=== PATIENT | female | born 1980 | race Caucasian/White ===

== ENCOUNTER 2023-05-08 18:50 | Emergency (ER) | payer SELFPAY ==
[2023-05-08 19:00] VITALS: BP 150/104; PULSE 78; RESP 18; TEMP 36.7; O2SAT 97
--- NOTE | 2023-05-08 19:23 | ED.GENADULT ---
HPI - General Adult General Chief complaint: Urogenital-Female Stated complaint: possible UTI Time Seen by Provider: 05/08/23 19:22 History of Present Illness HPI narrative: Patient is a 43 year old female here via EMS for urinary symptoms. Patient notes that police and EMS were initially called given concern for possible domestic disturbance. She notes that the police initially wanted her to have a mental health evaluation however on EMS arrival she was alert, oriented, and denied an SI, HI. She told them she was worried she may have a UTI so she agreed to come into the ED to be seen. She notes urinary symptoms for the last 3 days including increased urinary frequency, dysuria. No blood. Her last period was a couple weeks ago, does not believe she could be . Denies any abdominal pain, flank pain, fever, chills. She does have history of depression right after her years ago, no longer struggles with depression. Related Data Home Medications Medication Instructions Recorded Confirmed No Home Medications 05/08/23 05/08/23 Allergies Allergy/AdvReac Type Severity Reaction Status Date / Time amoxicillin [From Augmentin] Allergy Vomiting Verified 05/08/23 19:17 clavulanic acid Allergy Vomiting Verified 05/08/23 19:17 [From Augmentin] Review of Systems Review of Systems: All systems reviewed & are unremarkable except as noted in HPI and below Exam Narrative: GENERAL: Well-appearing, well-nourished, and in no acute distress. HEAD: Normocephalic, atraumatic. EYES: PERRLA and EOMI. ENT: Nares clear. Mucous membranes moist. Poor dentition. NECK: Supple. CHEST: Clear to auscultation. No respiratory distress. HEART: Regular rate and rhythm. Normal peripheral pulses. ABDOMEN: Soft, nontender, nondistended. EXTREMITIES: Normal range of motion. No edema. SKIN: Warm, dry, no rash. NEURO: No focal deficits. Alert and oriented x3. PSYCH: Normal mood and affect. Course Course Emergency Course: Chart review performed. Patient here for urinary symptoms. Patient seen evaluated, nontoxic appearing, alert, oriented, here with urinary symptoms. Denies suicidal, homicidal ideation. Will do UA and Urinary test. Do not feel she needs a mental health evaluation at this time given lack of SI/HI. UA negative for UTI, negative. Patient ambulated with steady gait here in the ER and is clinically sober at this time, stable for discharge. The results of pertinent diagnostic studies and exam findings were discussed. The patient?s provisional diagnosis and plan of care were discussed with the patient and present family. The patient and/or present family expressed understanding of the diagnosis and plan. The nurse was instructed to provide written instructions and appropriate follow-up information. The patient understands their need and responsibility to obtain additional follow-up as instructed. The risks of medications administered and prescribed were discussed with the patient and family present. Vital Signs Vital signs: Vital Signs Temperature 98.1 F 05/08/23 19:00 Pulse Rate 78 05/08/23 19:00 Respiratory Rate 18 05/08/23 19:00 Blood Pressure 150/104 H 05/08/23 19:00 Pulse Oximetry 97 05/08/23 19:00 Oxygen Delivery Room Air 05/08/23 19:00 Temperature 98.1 F 05/08/23 19:00 Pulse Rate 78 05/08/23 19:00 Respiratory Rate 18 05/08/23 19:00 Blood Pressure 150/104 H 05/08/23 19:00 Pulse Oximetry 97 05/08/23 19:00 Oxygen Delivery Room Air 05/08/23 19:00 Medical Decision Making Vital Signs Vital Signs: Vital Signs Temperature 98.1 F 05/08/23 19:00 Pulse Rate 78 05/08/23 19:00 Respiratory Rate 18 05/08/23 19:00 Blood Pressure 150/104 H 05/08/23 19:00 Pulse Oximetry 97 05/08/23 19:00 Oxygen Delivery Room Air 05/08/23 19:00 Temperature 98.1 F 05/08/23 19:00 Pulse Rate 78 05/08/23 19:00 Respiratory Rate 18 0
[2023-05-08 19:30] LABS: Appearance Urine Clear (Clear); Bilirubin Urine Negative (Negative); Blood Urine Negative (Negative); Color Urine Light Yellow (Yellow); Glucose Urine UA Negative (Negative); Ketones Urine Negative (Negative); Leukocyte Esterase Ur Negative LEU/UL (Negative); Nitrate Urine Negative (Negative); Protein Urine Negative (Negative); Urobilinogen Urine 0.2 mg/dL (0.2-1.0)
[2023-05-08 19:34] LABS: Add Urine Microscopic? NO; Pregnancy On Board Control Positive; Urine Pregnancy Test Negative
== END 2023-05-08 21:08 | disposition home or self-care (01) ==
PROVIDERS: Emergency Provider Student in an Organized Health Care Education/Training Program
DX: R30.0 Dysuria (principal)
CPT/HCPCS: 81003; 81025; 99283